=== PATIENT | male | born 1995 | race Caucasian/White ===

== ENCOUNTER 2023-04-25 11:55 | Emergency (ER) | payer OTHER, SELFPAY ==
[2023-04-25 11:56] VITALS: BP 127/68; PULSE 93; RESP 18; TEMP 35.9; O2SAT 99; BMI 25.4
--- NOTE | 2023-04-25 12:07 | EKG12_ITS ---
Test Reason : ABD PAIN Blood Pressure : / mmHG Vent. Rate : 080 BPM Atrial Rate : 080 BPM P-R Int : 150 ms QRS Dur : 100 ms QT Int : 354 ms P-R-T Axes : 071 040 014 degrees QTc Int : 408 ms Normal sinus rhythm Normal ECG Confirmed by GUERRERO BARAJAS, DELANEY ([id number]), city editor HAYDEE SANDHU ([id number]) on 04/26/2023 1:28:57 PM Referred By: Confirmed By:DELANEY MASTERS MD
--- NOTE | 2023-04-25 12:10 | EX.ED.DYSGE1 ---
HPI <LADAN Rouse - Last Filed: 04/25/23 13:22> History of Present Illness Chief Complaint: Abd Pain Narrative Narrative: 27-year-old male with no past medical history presents with multiple complaints. 4 days ago he developed right lower quadrant abdominal pain and the next day it moved to the left side. He also had nausea but was having normal p.o. intake. The abdominal pain resolved but today he has midsternal chest pain when taking a deep breath. He has no fever, chills, cough or upper respiratory symptoms. He states he is having normal bladder and bowel movements. He quit smoking about a month ago. He drinks alcohol about 3 days a week anywhere from several beers to a 12 pack. No surgical history. PFSH <LADAN Rouse - Last Filed: 04/25/23 13:22> PFSH Medical History no medical history Home Medications amoxicillin 875 mg-potassium clavulanate 125 mg tablet 1 tab PO Q12H #14 tabs 11/13/21 [Rx Last Taken Unknown] famotidine 20 mg tablet (Pepcid) 20 mg PO BID 7 days #14 tabs 04/25/23 [Rx Last Taken Unknown] Allergy/AdvReac Type Severity Reaction Status Date / Time No Known Allergies Allergy Verified 04/25/23 11:57 Social History Smoking Status: Former smoker ROS <LADAN Rouse - Last Filed: 04/25/23 13:22> ROS ED ROS Narrative Constitutional: Negative for fever, chills, malaise. CVS: Positive for chest pain. Negative for palpitations, syncope. Respiratory: Negative for shortness of breath, cough, orthopnea. GI: Positive for abdominal pain, nausea.Negative for vomiting, diarrhea, constipation, melena, hematochezia. : Negative for dysuria, hematuria or frequency. Neuro: Negative for headache. EXAM <LADAN Rouse - Last Filed: 04/25/23 13:22> Physical Exam Narrative Exam Narrative: CONST: Patient sitting in no acute distress. EYES: Normal inspection. ENT: Normal inspection, moist mucous membranes. NECK: Normal inspection. RESP: No respiratory distress, CTAB. No chest wall tenderness. CVS: Regular rate and rhythm, no murmur, no gallop. ABD: Soft and nontender, no guarding or rebound, nondistended, no hepatosplenomegaly. SKIN: Color normal, no rash, warm, dry, intact. EXTREMITIES: Normal appearance, no pedal edema. NEURO: Oriented x4. PSYCH: Normal affect. Const Vital Signs: 04/25/23 11:56 Temperature 96.7 F L Temperature Source Temporal Pulse Rate 93 Respiratory Rate 18 Blood Pressure 127/68 H Blood Pressure Mean 87 Pulse Ox 99 Oxygen Delivery Method Room Air <Dr. Jose Alfredo Chavira DO - Last Filed: 04/25/23 15:14> Physical Exam Const Vital Signs: 04/25/23 11:56 Temperature 96.7 F L Temperature Source Temporal Pulse Rate 93 Respiratory Rate 18 Blood Pressure 127/68 H Blood Pressure Mean 87 Pulse Ox 99 Oxygen Delivery Method Room Air MDM <LADAN Rouse - Last Filed: 04/25/23 13:22> MDM MDM Narrative Medical decision making narrative: History gathered from: Patient and Patient had recent abdominal pain that has resolved and is now having midsternal chest pain. He appears well and nontoxic. Vital signs are within normal limits. His medical exam is benign. He has no abdominal pain today and no abdominal tenderness. Cardiac and abdominal work-up are negative. There is no indication for CT scan since he has no tenderness. He is PERC negative so do not require D-dimer. After talking with him again he does report he was eating red [place] every day this week since he was on a job and this was unusual so this may have caused his abdominal issues. I prescribed Pepcid to take as needed. 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 He was treated with Toradol and advised OTC pain relievers. He was discharged in stable condition. Differential: GERD, gastritis, less likely appendicitis or cholecystitis among other Lab Data Attestation: I reviewed the patient's lab results. Labs: Laboratory Results - last 24 hr 04/25/23 12:25 WBC 6.4 RBC 5.13 Hgb 14.9 Hct 46.4 MCV 90.4 MCH 29.0 MCHC 32.1 RDW Std Deviation 41.0 RDW Coeff of Trey 12.3 Plt Count 286 MPV 8.8 Immature Gran % (Auto) 0.600 Neut % (Auto) 71.5 H Lymph % (Auto) 16.9 L [place] % (Auto) 9.9 Eos % (Auto) 0.5 Baso % (Auto) 0.6 Absolute Neuts (auto) 4.6 Absolute Lymphs (auto) 1.08 Nucleated RBC % 0 Sodium 140 Potassium 3.7 Chloride 104 Carbon Dioxide 31.0 Anion Gap 5 BUN 13 Creatinine 0.88 Estim Creat Clear Calc 126.09 Est GFR (MDRD) Af Amer 133 Est GFR (MDRD) Non-Af 110 BUN/Creatinine Ratio 14.8 Glucose 102 Calcium 9.1 Total Bilirubin 0.50 AST 15 ALT 24 Alkaline Phosphatase 72 Troponin I High Sens < 3 L Total Protein 7.5 Albumin 3.8 Globulin 3.7 Albumin/Globulin Ratio 1.0 Lipase 23 Radiography Diagnostic Testing: Clinical Impression(s) from Imaging Studies Chest X-Ray 04/25/23 12:45 IMPRESSION: Normal x-ray examination of the chest. Electronically Signed: Mal Kern MD at 13:06 EDT , ED attending interpretation of 2- view chest x-ray shows normal heart size, no acute infiltrate, edema, or effusion. EKG Initial EKG: Attestation: I personally reviewed and interpreted this EKG as follows: Comments: ED attending interpretation of EKG is normal sinus rhythm at 80 bpm, normal intervals, no STEMI criteria <Dr. Jose Alfredo Chavira, DO - Last Filed: 04/25/23 15:14> [facility] Narrative Medical decision making narrative: History gathered from: Patient and Patient had recent abdominal pain that has resolved and is now having midsternal chest pain. He appears well and nontoxic. Vital signs are within normal limits. His medical exam is benign. He has no abdominal pain today and no abdominal tenderness. Cardiac and abdominal work-up are negative. There is no indication for CT scan since he has no tenderness. He is PERC negative so do not require D-dimer. After talking with him again he does report he was eating red [place] every day this week since he was on a job and this was unusual so this may have caused his abdominal issues. I prescribed Pepcid to take as needed. 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 He was treated with Toradol and advised OTC pain relievers. He was discharged in stable condition. Differential: GERD, gastritis, less likely appendicitis or cholecystitis among other This patient was seen with a PA/ELEMENTARY SCIENCE TEACHER Individually assessed they patient including history and physical. I have reviewed everything on the chart that is available and agree with the documentation provided by the PA/ELEMENTARY SCIENCE TEACHER including discussion about the assessment, treatment plan, discussion, and return precautions. Patient presenting with resolved abdominal pain. He states he is now having pain up into his chest. No cardiac history. PERC negative. 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 He thinks that the abdominal pain and cramping was due to eating red [place] every day this week. Patient's vital signs are stable he is afebrile. Lab work-up was unremarkable. Chest x-ray was obtained and on my interpretation is no acute process. High-sensitivity troponin is negative. At this point I think the patient is stable for discharge home. Lab Data Labs: Laboratory Results - last 24 hr 04/25/23 12:25 WBC 6.4 RBC 5.13 Hgb 14.9 Hct 46.4 MCV 90.4 MCH 29.0 MCHC 32.1 RDW Std Deviation 41.0 RDW Coeff of Trey 12.3 Plt Count 286 MPV 8.8 Immature Gran % (Auto) 0.600 Neut % (Auto) 71.5 H Lymph % (Auto) 16.9 L [place] % (Auto) 9.9 Eos % (Auto) 0.5 Baso % (Auto) 0.6 Absolute Neuts (auto) 4.6 Absolute Lymphs (auto) 1.08 Nucleated RBC % 0 Sodium 140 Potassium 3.7 Chloride 104 Carbon Dioxide 31.0 Anion Gap 5 BUN 13 Creatinine 0.88 Estim Creat Clear Calc 126.09 Est GFR (MDRD) Af Amer 133 Est GFR (MDRD) Non-Af 110 BUN/Creatinine Ratio 14.8 Glucose 102 Calcium 9.1 Total Bilirubin 0.50 AST 15 ALT 24 Alkaline Phosphatase 72 Troponin I High Sens < 3 L Total Protein 7.5 Albumin 3.8 Globulin 3.7 Albumin/Globulin Ratio 1.0 Lipase 23 Radiography Diagnostic Testing: Clinical Impression(s) from Imaging Studies Chest X-Ray 04/25/23 12:45 IMPRESSION: Normal x-ray examination of the chest. Electronically Signed: Mal Kern MD at 13:06 EDT , Discharge Plan Triage Chief Complaint: Abd Pain ED Midlevel Provider: Padmini Weathers ED Provider: Jose Alfredo Chavira Dx/Rx/DC Orders Clinical Impression: Atypical chest pain Instructions: ED Chest Pain, Noncardiac Prescriptions: New famotidine [Pepcid] 20 mg tablet 20 mg PO BID 7 Days Qty: 14 0RF No Action amoxicillin-pot clavulanate 875-125 mg tablet 1 tab PO Q12H Qty: 14 0RF Primary Care Provider: Care Physician,No Primary Referrals: NOT,DEFINED [Non-Staff] - Activity Restrictions/Additional Instructions: All of your blood work and testing today look normal. You may be having chest and abdominal discomfort from eating the greasy food recently. I recommend going back to your regular diet and I prescribed Pepcid to take for 1 week. Please follow-up with your primary care doctor. Disposition Disposition: Home, Self Care Discharge Date/Time: 04/25/23 13:28
--- NOTE | 2023-04-25 12:33 | ED.RN ---
NO OLD EKGS
[2023-04-25 12:38] LABS: Absolute Lymphocyte Count 1.08 X10^3/uL (0.83-4.51); Absolute Neutrophil Count 4.6 X10^3/uL (2.0-7.7); Basophil# 0.04 X10^3/uL; Basophil% 0.6 % (0-1); Eosinophil# 0.03 X10^3/uL; Eosinophils% 0.5 % (0-5); Hematocrit 46.4 % (40-54); Hemoglobin 14.9 g/dL (13.0-16.5); Lymphocyte # 1.08 X10^3/ul (0.83-4.51); Lymphocyte % 16.9 % (19-41); Mean Corp Hgb Conc 32.1 g/dL (32-36); Mean Corpuscular Volume 90.4 fL (80-94); Mean Platelet Vol. 8.8 fl (6.2-12.0); Monocyte# 0.63 X10^3/uL; Monocyte% 9.9 % (0-10); NRBC Flagged by Analyzer 0 % (0-5); Neutrophil # 4.57 X10^3/uL (2.7-7.7); Neutrophil % 71.5 % (47-70); Platelet Count 286 K/mm3 (150-450); RBC Distribution Width CV 12.3 % (11.6-14.6); Red Blood Count 5.13 M/mm3 (4.6-6.2); White Blood Count 6.4 K/mm3 (4.4-11.0)
--- NOTE | 2023-04-25 12:45 | RAD_ITS ---
STUDY: X-RAY CHEST REASON FOR EXAM: Male, 27 years old. chest pain TECHNIQUE: PA and lateral views of the chest. COMPARISON: None. FINDINGS: The lungs are clear and expanded. There is no demonstrated pleural abnormality. Normal size heart. Normal mediastinum and donna. Normal visualized pulmonary arteries. Normal visualized aortic arch and descending thoracic aorta. Normal visualized thoracic spine. Normal visualized ribs, clavicles, and shoulders. There is no demonstrated abnormality of the visualized soft tissue structures of the upper abdomen. RAD/Chest PA and Lateral IMPRESSION: Normal x-ray examination of the chest. Electronically Signed: Mal Kern MD at 13:06 EDT ,
[2023-04-25 12:56] LABS: AST(SGOT) 15 U/L (15-37); Alanine Aminotransfer ALT/SGPT 24 U/L (16-61); Albumin, Serum 3.8 g/dL (3.2-5.0); Alkaline Phosphatase 72 U/L (45-117); Anion Gap 5 (5-15); BUN 13 mg/dL (7-18); BUN/Creat Ratio 14.8 RATIO (10-20); Calcium,Total 9.1 mg/dL (8.5-10.1); Chloride 104 mmol/L (98-107); Creatinine, Serum 0.88 mg/dL (0.70-1.30); EST Glomerular Filtration Rate 110 mL/min (>60); Est Glom Filt Rate - Afr Amer 133 mL/min (>60); Estimated Creatinine Clearance 126.09 ml/min; Globulin 3.7 g/dL (2.2-4.2); Glucose 102 mg/dL (74-106); Lipase 23 U/L (13-75); Potassium 3.7 mmol/L (3.5-5.1); Protein, Total 7.5 g/dL (6.4-8.2); Sodium Level 140 mmol/L (136-145); Troponin-I HS < 3 pg/mL (3.0-78.0)
[2023-04-25] MEDS: Ketorolac 30 MG/ML Syringe IV (13:25)
== END 2023-04-25 13:28 | disposition home or self-care (01) ==
PROVIDERS: Physician Assistant; Emergency Provider Student in an Organized Health Care Education/Training Program; Visit Provider Student in an Organized Health Care Education/Training Program
DX: R07.89 Other chest pain (principal); Z87.891 Personal history of nicotine dependence
CPT/HCPCS: 71046; 80053; 83690; 84484; 85025; 93005; 96374; 99282; A4216